=== PATIENT | male | born 1975 | race African-American/Black ===

== ENCOUNTER 2024-09-18 20:26 | Inpatient (IN) | payer OTHER ==
[2024-09-18 20:51] VITALS: BMI 22.5
[2024-09-18] MEDS ORDERED: ONDANSETRON *ODT* 4 MG TABLET SL PRN (21:28)
[2024-09-18] MEDS ORDERED: MAG HYDROX/AL HYDROX/SIMETH 30 ML UNIT-DOSE CUP PO PRN (21:28)
[2024-09-18] MEDS ORDERED: LOPERAMIDE HCL 2 MG CAPSULE PO PRN (21:28)
[2024-09-18] MEDS ORDERED: DICYCLOMINE HCL 10 MG CAPSULE PO PRN (21:28)
[2024-09-18] MEDS ORDERED: NALOXONE (NARCAN) HCL 4 MG/0.1 ML SPRAY NS PRN (21:28)
[2024-09-18] MEDS ORDERED: BENZONATATE 200 MG CAPSULE PO PRN (21:28)
[2024-09-18] MEDS ORDERED: MAGNESIUM HYDROX 2400MG/30ML ORAL SUSPENSION 30 ML CUP PO PRN (21:28)
[2024-09-18] MEDS ORDERED: ACETAMINOPHEN 325 MG TABLET (FP) PO PRN (21:28)
[2024-09-18] MEDS ORDERED: guaiFENesin 600 MG TABLET.ER (FP) PO PRN (21:28)
[2024-09-18] MEDS ORDERED: P-EPHED 60MG/TRIPROLIDI 2.5MG TABLET PO PRN (21:28)
[2024-09-18] MEDS ORDERED: BISMUTH SUBSALICYLATE 524 MG/30 ML PO PRN (21:28)
[2024-09-18] MEDS ORDERED: POLYETHYLENE GLYCOL (HEALTHYLAX) 3350 17 GM PACKET PO PRN (21:28)
[2024-09-18] MEDS ORDERED: BENZOCAINE/MENTHOL (CHLORASEPTIC ) LOZENGE MM PRN (21:28)
[2024-09-18] MEDS ORDERED: NICOTINE POLACRILEX 2 MG GUM BUC PRN (21:28)
[2024-09-18] MEDS ORDERED: NICOTINE POLACRILEX 2 MG LOZENGE BC PRN (21:28)
[2024-09-18] MEDS ORDERED: hydrOXYzine PAMOATE 25 MG CAPSULE (FP) PO PRN (21:28)
[2024-09-18] MEDS: MELATONIN 5 MG TABLETS PO SCH (22:58)
[2024-09-18] MEDS: METHOCARBAMOL 500 MG TABLET PO PRN (22:59)
[2024-09-18] MEDS: THIAMINE 100 MG TABLET PO SCH (22:59)
[2024-09-18] MEDS: IBUPROFEN 600 MG TABLET (FP) PO PRN (23:00)
[2024-09-19] MEDS ORDERED: chlordiazePOXIDE HCL 25 MG CAPSULE PO PRN (09:44)
[2024-09-19] MEDS: chlordiazePOXIDE HCL 25 MG CAPSULE PO SCH (10:43)
[2024-09-19] MEDS: PRENATAL VITAMINS W/ FOLIC ACID TABLET (FP) PO SCH (10:43)
[2024-09-19 13:41] LABS: HEMATOCRIT 39.3 % (35.4-49); HEMOGLOBIN 13.1 GM/dL (11.7-16.9); MCH 31.3 pg (25.7-33.7); MCHC 33.4 g/dl (32.0-35.9); MEAN CELL VOLUME 93.7 fl (80-96); MEAN PLT VOLUME 7.6 fl (7.5-11.1); PLATELET COUNT 165 10^3/uL (134-434); RBC 4.19 M/mm3 (4.00-5.60); RDW 14.1 % (11.9-15.9)
[2024-09-19 13:44] LABS: CHLORIDE 103 mmol/L (98-107); POTASSIUM 3.5 mmol/L (3.5-5.1); SODIUM 140 mmol/L (136-145)
[2024-09-19 13:52] LABS: ALBUMIN 3.3 g/dl (3.4-5.0); ANION GAP 8 mmol/L (4-13); CALCIUM 8.9 mg/dL (8.5-10.1); CO2 29 mmol/L (21-32)
[2024-09-19 13:53] LABS: GLUCOSE,RANDOM 183 mg/dL (74-106)
[2024-09-19 13:54] LABS: SGPT/ALT 30 U/L (13-61)
[2024-09-19 13:55] LABS: SGOT/AST 107 U/L (15-37)
[2024-09-19 13:56] LABS: BILIRUBIN,TOTAL 0.9 mg/dL (0.2-1); BLOOD UREA NITROGEN 7.8 mg/dL (7-18); TOT PROT 7.3 g/dl (6.4-8.2)
[2024-09-19 13:57] LABS: ALK PHOS 109 U/L (45-117)
[2024-09-19] MEDS ORDERED: LORazepam 1 MG TABLET PO PRN (14:58)
[2024-09-19] MEDS: amLODIPine BESYLATE 5 MG TABLET (FP) PO SCH (15:31)
[2024-09-19] MEDS: LORazepam 2 MG TABLET PO SCH (17:37)
[2024-09-20] MEDS ORDERED: chlordiazePOXIDE HCL 25 MG CAPSULE PO SCH (05:00)
[2024-09-21] MEDS ORDERED: chlordiazePOXIDE HCL 10 MG CAPSULE PO PRN
[2024-09-21] MEDS ORDERED: chlordiazePOXIDE HCL 10 MG CAPSULE PO SCH (05:00)
[2024-09-21] MEDS: LORazepam 1 MG TABLET PO SCH (05:56)
[2024-09-22] MEDS ORDERED: LORazepam 0.5 MG TABLET PO PRN
[2024-09-22] MEDS ORDERED: chlordiazePOXIDE HCL 10 MG CAPSULE PO SCH (05:00)
[2024-09-22] MEDS: LORazepam 0.5 MG TABLET PO SCH (05:58)
[2024-09-22 12:49] LABS: BASO % 0.6 % (0-2.0); EOS % 2.6 % (0-4.5); HEMATOCRIT 35.7 % (35.4-49); HEMOGLOBIN 11.3 GM/dL (11.7-16.9); LYMPH % 24.2 % (8-40); MCH 30.5 pg (25.7-33.7); MCHC 31.8 g/dl (32.0-35.9); MEAN CELL VOLUME 95.8 fl (80-96); MEAN PLT VOLUME 8.3 fl (7.5-11.1); MONO % 13.8 % (3.8-10.2); NEUT % 58.8 % (42.8-82.8); PLATELET COUNT 168 10^3/uL (134-434); RBC 3.72 M/mm3 (4.00-5.60); RDW 14.2 % (11.9-15.9)
[2024-09-23] MEDS: IBUPROFEN 400 MG TABLET (FP) PO PRN (01:00)
[2024-09-23] MEDS ORDERED: chlordiazePOXIDE HCL 10 MG CAPSULE PO ONE (05:00)
[2024-09-23] MEDS: LORazepam 0.5 MG TABLET PO ONE (05:36)
[2024-09-23 09:36] VITALS: BP 101/68; PULSE 77; RESP 18; TEMP 97.8
== END 2024-09-23 14:18 | disposition home or self-care (01) | DRG 775 ==
LOC: YASAS 20:26 → Y6N 22:00
PROVIDERS: ADMIT Allergy & Immunology; ATTEND Surgery
PROC: HZ2ZZZZ Detoxification Services for Substance Abuse Treatment (ICD-10-PCS; principal; 2024-09-18)
DX: F10.230 Alcohol dependence with withdrawal, uncomplicated (principal); F17.210 Nicotine dependence, cigarettes, uncomplicated; I10 Essential (primary) hypertension; Z59.00 Homelessness unspecified
CPT/HCPCS: 36415; 80053; 80307; 83036; 84450; 85025; 85027; 86780; 93005; 93010

== ENCOUNTER 2024-10-05 12:25 | Inpatient (IN) | payer OTHER ==
[2024-10-05 14:04] VITALS: BMI 25.0
[2024-10-05] MEDS ORDERED: MAG HYDROX/AL HYDROX/SIMETH 30 ML UNIT-DOSE CUP PO PRN (14:18)
[2024-10-05] MEDS ORDERED: BENZONATATE 200 MG CAPSULE PO PRN (14:18)
[2024-10-05] MEDS ORDERED: NALOXONE (NARCAN) HCL 4 MG/0.1 ML SPRAY NS PRN (14:18)
[2024-10-05] MEDS ORDERED: POLYETHYLENE GLYCOL (HEALTHYLAX) 3350 17 GM PACKET PO PRN (14:18)
[2024-10-05] MEDS ORDERED: guaiFENesin 600 MG TABLET.ER (FP) PO PRN (14:18)
[2024-10-05] MEDS ORDERED: LOPERAMIDE HCL 2 MG CAPSULE PO PRN (14:18)
[2024-10-05] MEDS ORDERED: MAGNESIUM HYDROX 2400MG/30ML ORAL SUSPENSION 30 ML CUP PO PRN (14:18)
[2024-10-05] MEDS ORDERED: IBUPROFEN 400 MG TABLET (FP) PO PRN (14:18)
[2024-10-05] MEDS ORDERED: PRENATAL VITAMINS W/ FOLIC ACID TABLET (FP) PO ONE (15:48)
[2024-10-05] MEDS: PRENATAL VITAMINS W/ FOLIC ACID TABLET (FP) PO SCH (15:54)
[2024-10-05 18:36] LABS: URINE APPEARANCE CLEAR; URINE BILIRUBIN NEGATIVE (NEGATIVE); URINE COLOR YELLOW; URINE GLUCOSE (UA) NEGATIVE (NEGATIVE); URINE KETONE NEGATIVE (NEGATIVE); URINE LEUK ESTERASE NEGATIVE (NEGATIVE); URINE NITRITE NEGATIVE (NEGATIVE); URINE PROTEIN NEGATIVE (NEGATIVE)
[2024-10-05] MEDS: THIAMINE 100 MG TABLET PO SCH (21:12)
[2024-10-05] MEDS: MELATONIN 5 MG TABLETS PO SCH (21:13)
[2024-10-06] MEDS: amLODIPine BESYLATE 5 MG TABLET (FP) PO SCH (09:09)
[2024-10-06 11:35] LABS: HEMOGLOBIN 11.8 GM/dL (11.7-16.9); MCH 30.7 pg (25.7-33.7); MCHC 32.9 g/dl (32.0-35.9); MEAN CELL VOLUME 93.1 fl (80-96); MEAN PLT VOLUME 8.4 fl (7.5-11.1); PLATELET COUNT 142 10^3/uL (134-434); RBC 3.86 M/mm3 (4.00-5.60); RDW 13.1 % (11.9-15.9); WHITE BLOOD COUNT 3.9 K/mm3 (4.0-10.0)
[2024-10-06 12:07] LABS: SYPHILIS W/ RPR CONF NON-REACTIVE (NONREACTIVE)
[2024-10-06 13:32] LABS: CHLORIDE 103 mmol/L (98-107); POTASSIUM 3.5 mmol/L (3.5-5.1); SODIUM 137 mmol/L (136-145)
[2024-10-06 13:38] LABS: CALCIUM 9.5 mg/dL (8.5-10.1)
[2024-10-06 13:39] LABS: ALBUMIN 3.1 g/dl (3.4-5.0); ANION GAP 7 mmol/L (4-13); BLOOD UREA NITROGEN 4.4 mg/dL (7-18); CO2 27 mmol/L (21-32); CREATININE 0.7 mg/dL (0.55-1.3); GLUCOSE,RANDOM 113 mg/dL (74-106); SGPT/ALT 20 U/L (13-61)
[2024-10-06 13:40] LABS: SGOT/AST 46 U/L (15-37)
[2024-10-06 13:41] LABS: BILIRUBIN,TOTAL 0.6 mg/dL (0.2-1); TOT PROT 6.4 g/dl (6.4-8.2)
[2024-10-06 13:46] LABS: ALK PHOS 94 U/L (45-117)
[2024-10-06] MEDS: ACETAMINOPHEN 325 MG TABLET (FP) PO PRN (23:43)
[2024-10-08] MEDS: P-EPHED 60MG/TRIPROLIDI 2.5MG TABLET PO PRN (06:03)
[2024-10-08] MEDS: IBUPROFEN 600 MG TABLET (FP) PO PRN (06:03)
[2024-10-09] MEDS ORDERED: guaiFENesin/D-METHORPHAN HB 10 ML UNIT-DOSE CUPS PO PRN (10:07)
[2024-10-09] MEDS: BENZOCAINE/MENTHOL (CHLORASEPTIC ) LOZENGE MM PRN (10:37)
[2024-10-09] MEDS ORDERED: BENZONATATE 200 MG CAPSULE PO PRN (11:22)
[2024-10-09] MEDS: guaiFENesin 600 MG TABLET.ER (FP) PO SCH (11:44)
[2024-10-09] MEDS: CHLORHEXIDINE GLUCONATE 0.12% 15ML CUP MM SCH (11:44)
[2024-10-09] MEDS: OXYMETAZOLINE 0.05% NASAL SOLUTION 15 ML BOTTLE NS PRN (21:55)
[2024-10-10] MEDS: ARTIFICIAL TEARS OPHTHALMIC DROPS OD PRN (10:39)
[2024-10-15] MEDS: guaiFENesin 200 MG/10 ML 10 ML UNIT-DOSE CUPS PO PRN (06:01)
[2024-10-16] MEDS: hydrOXYzine PAMOATE 25 MG CAPSULE (FP) PO PRN (21:54)
[2024-10-24] MEDS ORDERED: guaiFENesin 600 MG TABLET.ER (FP) PO PRN (10:49)
[2024-10-26 06:33] VITALS: RESP 16; TEMP 97.4
[2024-10-26 09:15] VITALS: PULSE 98
[2024-10-26] MEDS: NALOXONE (NYS OPIOID OVERDOSE PROGRAM) 4 MG/0.1 ML SPRAY NS PRN (09:15)
[2024-10-26 09:37] VITALS: BP 126/80
== END 2024-10-26 10:00 | disposition home or self-care (01) | DRG 772 ==
LOC: YASAS 12:25 → Y3NR 15:57 → Y5N 10-06 13:32
PROVIDERS: ADMIT Psychiatry & Neurology Pain Medicine; ATTEND Psychiatry & Neurology Pain Medicine
PROC: HZ42ZZZ Group Counseling for Substance Abuse Treatment, Cognitive-Behavioral (ICD-10-PCS; principal; 2024-10-05)
DX: F10.20 Alcohol dependence, uncomplicated (principal); F17.210 Nicotine dependence, cigarettes, uncomplicated; F10.24 Alcohol dependence with alcohol-induced mood disorder; F39 Unspecified mood [affective] disorder; F32.A Depression, unspecified; I10 Essential (primary) hypertension; J10.1 Influenza due to other identified influenza virus with other respiratory manifestations; B97.4 Respiratory syncytial virus as the cause of diseases classified elsewhere; J01.90 Acute sinusitis, unspecified; K21.9 Gastro-esophageal reflux disease without esophagitis; Z59.00 Homelessness unspecified
CPT/HCPCS: 0241U-QW; 36415; 80053; 80305; 80307; 81003; 85027; 86780; 86803; 87811; 93005; 93010

== ENCOUNTER 2025-05-29 16:19 | Inpatient (IN) | payer OTHER ==
[2025-05-29 16:53] VITALS: BMI 26.2
[2025-05-29] MEDS ORDERED: ACETAMINOPHEN 325 MG TABLET (FP) PO PRN (17:05)
[2025-05-29] MEDS ORDERED: ONDANSETRON *ODT* 4 MG TABLET SL PRN (17:05)
[2025-05-29] MEDS ORDERED: NICOTINE POLACRILEX 2 MG GUM BUC PRN (17:05)
[2025-05-29] MEDS ORDERED: METHOCARBAMOL 500 MG TABLET PO PRN (17:05)
[2025-05-29] MEDS ORDERED: BENZOCAINE/MENTHOL (CHLORASEPTIC ) LOZENGE MM PRN (17:05)
[2025-05-29] MEDS ORDERED: MAGNESIUM HYDROX 2400MG/30ML ORAL SUSPENSION 30 ML CUP PO PRN (17:05)
[2025-05-29] MEDS ORDERED: NICOTINE POLACRILEX 2 MG LOZENGE BC PRN (17:05)
[2025-05-29] MEDS ORDERED: IBUPROFEN 400 MG TABLET (FP) PO PRN (17:05)
[2025-05-29] MEDS ORDERED: LOPERAMIDE HCL 2 MG CAPSULE PO PRN (17:05)
[2025-05-29] MEDS ORDERED: NALOXONE (NARCAN) HCL 4 MG/0.1 ML SPRAY NS PRN (17:05)
[2025-05-29] MEDS ORDERED: guaiFENesin 600 MG TABLET.ER (FP) PO PRN (17:05)
[2025-05-29] MEDS ORDERED: DICYCLOMINE HCL 10 MG CAPSULE PO PRN (17:05)
[2025-05-29] MEDS ORDERED: POLYETHYLENE GLYCOL (HEALTHYLAX) 3350 17 GM PACKET PO PRN (17:05)
[2025-05-29] MEDS ORDERED: IBUPROFEN 600 MG TABLET (FP) PO PRN (17:05)
[2025-05-29] MEDS ORDERED: BENZONATATE 200 MG CAPSULE PO PRN (17:05)
[2025-05-29] MEDS ORDERED: BISMUTH SUBSALICYLATE 524 MG/30 ML PO PRN (17:05)
[2025-05-29] MEDS ORDERED: MAG HYDROX/AL HYDROX/SIMETH 30 ML UNIT-DOSE CUP PO PRN (17:05)
[2025-05-29] MEDS ORDERED: hydrOXYzine PAMOATE 25 MG CAPSULE (FP) PO PRN (17:05)
[2025-05-29] MEDS: THIAMINE 100 MG TABLET PO SCH (22:56)
[2025-05-29] MEDS: MELATONIN 5 MG TABLETS PO SCH (22:56)
[2025-05-29] MEDS: amLODIPine BESYLATE 5 MG TABLET (FP) PO ONE (22:56)
[2025-05-30] MEDS: PRENATAL VITAMINS W/ FOLIC ACID TABLET (FP) PO SCH (10:45)
[2025-05-30] MEDS: amLODIPine BESYLATE 5 MG TABLET (FP) PO SCH (10:45)
[2025-05-30 10:52] LABS: MCHC 31.1 g/dl (32.3-36.5); MEAN CELL VOLUME 93.8 fl (79.0-92.2); MEAN PLT VOLUME 9.6 fl (9.4-12.4); RDW 13.8 % (12.1-15.9)
[2025-05-30 12:17] LABS: GLUCOSE,RANDOM 98 mg/dL (74-106); TOT PROT 7.4 g/dl (6.4-8.2)
[2025-05-30 12:18] LABS: CO2 26 mmol/L (21-32)
[2025-05-30 12:20] LABS: ALK PHOS 91 U/L (40-150)
[2025-05-30 12:23] LABS: CREATININE 0.75 mg/dL (0.55-1.3); SGOT/AST 47 U/L (5-34); SGPT/ALT 16 U/L (0-55)
[2025-05-31 09:22] VITALS: BP 109/64; PULSE 78; RESP 16
[2025-05-31 11:20] LABS: IMMATURE PLATELET FRACTION # 4.40 x10^3/uL; MCHC 31.7 g/dl (32.3-36.5); MEAN CELL VOLUME 91.5 fl (79.0-92.2); MEAN PLT VOLUME 9.7 fl (9.4-12.4); RDW 13.6 % (12.1-15.9)
[2025-05-31 12:02] VITALS: TEMP 96.8
== END 2025-05-31 12:05 | disposition home or self-care (01) | DRG 775 ==
LOC: YASAS 16:19 → Y3N 22:11
PROVIDERS: ADMIT Neuromusculoskeletal Medicine & OMM; ATTEND Allergy & Immunology
PROC: HZ2ZZZZ Detoxification Services for Substance Abuse Treatment (ICD-10-PCS; principal; 2025-05-29)
DX: F10.230 Alcohol dependence with withdrawal, uncomplicated (principal); F17.210 Nicotine dependence, cigarettes, uncomplicated; F39 Unspecified mood [affective] disorder; F32.A Depression, unspecified; F41.9 Anxiety disorder, unspecified; I10 Essential (primary) hypertension; Z86.2 Personal history of diseases of the blood and blood-forming organs and certain disorders involving the immune mechanism
CPT/HCPCS: 36415; 80053; 80307; 85027; 86780